=== PATIENT | male | born 1990 | race Caucasian/White ===

== ENCOUNTER 2022-08-30 03:03 | Emergency (ER) | payer SELFPAY ==
[~2022-08-30] VITALS: Ht 182.9 cm; Wt 115.7 kg
--- NOTE | 2022-08-30 04:37 | ED General ---
General Chief Complaint: Psych/Social Disorder Stated Complaint: ANXIETY/POSS PANIC ATTACK Source of Information: Patient (DIFFICULT TO KEEP ON TRACK--TALKS RAPIDLY NON- STOP), Other (BROTHER DOES GIVE SOME INFORMATION) History of Present Illness Date Seen by Provider: Aug 30, 2022 Time Seen by Provider: 04:10 Initial Comments PT ARRIVES VIA POV FROM HOME WITH BROTHER PT STATES "I THOUGHT I WAS HAVING A PANIC ATTACK" STATES TONIGHT, HE BEGAN HAVING RACING THOUGHTS STATES "I FORGOT SOMETHING AND I COULDN'T STOP THINKING ABOUT IT AND MY THOUGHTS STARTED RACING AND I JUST STARTED TO THINK ABOUT ALL THE THINGS THAT MIGHT HAPPEN" STATES "I WAS WINDING MYSELF UP AND I COULDN'T STOP THINKING" "AND I'M HAVING RACING THOUGHTS" --HE REPEATS THIS SEVERAL TIMES STATES THEN HE FELT LIKE HE COULDN'T CATCH HIS BREATH AND HIS THOUGHTS JUST KEPT RACING AND COULDN'T STOP THINKING ABOUT ALL THE BAD THINGS IT MIGHT BE" TALKED TO HIS BROTHER WHO TRIED TO CALM HIM DOWN, AND HE WOULD CALM DOWN A LITTL E AND THEN HE WOULD START WINDING UP AGAIN. HE IS NOT HAVING ANY THOUGHTS OF SELF HARM OR HARMING SOMEONE ELSE, OR HEARING VOICES. STATES HE HAS NOT BEEN ABLE TO SLEEP TONIGHT, AND ONLY GOT 6 HOURS OF SLEEP LAST NIGHT BECAUSE HE WAS UP MOST OF THE NIGHT AT A FRIENDS HOUSE. HE DENIES ANY HISTORY OF SIMILAR HE DENIES ANY HISTORY OF MENTAL HEALTH PROBLEMS HE DOES NOT TAKE ANY DAILY MEDICATIONS STATES HE DOES NOT SMOKE, BUT BINGE DRINKS ON WEEKENDS--ABOUT A PINT A NIGHT ON WEEKENDS--LAST ETOH WAS TUESDAY NIGHT 08/28/22 HE SMOKED A "DELTA 8" THC TONIGHT, AND SHORTLY AFTER THAT IS WHEN THESE SYMPTOMS BEGAN Allergies and Home Medications Allergies Coded Allergies: No Known Drug Allergies (Unverified , 08/30/22) Patient Home Medication List No Active Prescriptions or Reported Meds Physical Exam Vital Signs Vital Signs - First Documented 08/30/22 03:53 Temp 36.3 Pulse 75 Resp 14 B/P (MAP) 149/107 (121) Pulse Ox 98 O2 Delivery Room Air Capillary Refill : Height, Weight, BMI Height: '" Weight: lbs. oz. kg; BMI Method: General Appearance: No Apparent Distress, WD/WN, Anxious, Obese Respiratory: Normal Breath Sounds, No Accessory Muscle Use, No Respiratory Distress Cardiovascular: Regular Rate, Rhythm, No Murmur Gastrointestinal: Non Tender, Soft Extremity: Normal Inspection Neurologic/Psychiatric: Alert, Oriented x3, No Motor/Sensory Deficits, client onboarding analyst II- XII Norm as Tested Skin: Normal Color, Warm/Dry Progress/Results/Core Measures Suspected Sepsis SIRS Temperature: Pulse: Respiratory Rate: Laboratory Tests 08/30/22 04:32: White Blood Count 5.9 Blood Pressure / Mean: Laboratory Tests 08/30/22 04:32: Creatinine 0.84, Platelet Count 256, Total Bilirubin 0.5 Results/Orders Lab Results Laboratory Tests Test 08/30/22 04:32 08/30/22 04:34 Range/Units White Blood Count 5.9 4.3-11.0 10^3/uL Red Blood Count 5.16 4.30-5.52 10^6/uL Hemoglobin 16.2 13.3-17.7 g/dL Hematocrit 46 40-54 % Mean Corpuscular Volume 89 80-99 fL Mean Corpuscular Hemoglobin 31 25-34 pg Mean Corpuscular Hemoglobin Concent 35 32-36 g/dL Red Cell Distribution Width 13.2 10.0-14.5 % Platelet Count 256 130-400 10^3/uL Mean Platelet Volume 11.6 9.0-12.2 fL Immature Granulocyte % (Auto) 0 % Neutrophils (%) (Auto) 58 42-75 % Lymphocytes (%) (Auto) 29 12-44 % Monocytes (%) (Auto) 8 0-12 % Eosinophils (%) (Auto) 3 0-10 % Basophils (%) (Auto) 2 0-10 % Neutrophils # (Auto) 3.4 1.8-7.8 10^3/uL Lymphocytes # (Auto) 1.7 1.0-4.0 10^3/uL Monocytes # (Auto) 0.5 0.0-1.0 10^3/uL Eosinophils # (Auto) 0.2 0.0-0.3 10^3/uL Basophils # (Auto) 0.1 0.0-0.1 10^3/uL Immature Granulocyte # (Auto) 0.0 0.0-0.1 10^3/uL Sodium Level 141 135-145 MMOL/L Potassium Level 3.5 L 3.6-5.0 MMOL/L Chloride Level 104 98-107 MMOL/L Carbon Dioxide Level 23 21-32 MMOL/L Anion Gap 14 5-14 MMOL/L Blood Urea Nitrogen 7 7-18 MG/DL Creatinine 0.84 0.60-1.30 MG/DL Estimat Glomerular Filtration Rate 119 BUN/Creatinine Ratio 8 Glucose Level 107 H 70-105 MG/DL Calcium Level 10.0 8.5-10.1 MG/DL Corrected Calcium 8.5-10.1 MG/DL Total Bilirubin 0.5 0.1-1.0 MG/DL Aspartate Amino Transf (AST/SGOT) 29 5-34 U/L Alanine Aminotransferase (ALT/SGPT) 64 H 0-55 U/L Alkaline Phosphatase 102 40-136 U/L Total Protein 8.2 6.4-8.2 GM/DL Albumin 4.7 H 3.2-4.5 GM/DL TSH [place] Testing 2.32 0.35-4.94 UIU/ML Salicylates Level < 5.0 L 5.0-20.0 MG/DL Acetaminophen Level < 10 L 10-30 UG/ML Serum Alcohol < 10 <10 MG/DL Urine Color YELLOW Urine Clarity CLEAR Urine pH 5.5 5-9 Urine Specific [place] >=1.030 1.016-1.022 Urine Protein NEGATIVE NEGATIVE Urine Glucose (UA) NEGATIVE NEGATIVE Urine Ketones 1+ H NEGATIVE Urine Nitrite NEGATIVE NEGATIVE Urine Bilirubin 1+ H NEGATIVE Urine Urobilinogen 0.2 < = 1.0 MG/DL Urine Leukocyte Esterase NEGATIVE NEGATIVE Urine RBC (Auto) NEGATIVE NEGATIVE Urine RBC NONE /HPF Urine WBC RARE /HPF Urine Squamous Epithelial Cells RARE /HPF Urine Crystals PRESENT H /LPF Urine Calcium Oxalate Crystals RARE H /LPF Urine Bacteria TRACE /HPF Urine Casts PRESENT /LPF Urine Hyaline Casts 0-2 H /LPF Urine Mucus MODERATE H /LPF Urine Culture Indicated NO Urine Opiates Screen NEGATIVE NEGATIVE Urine Oxycodone Screen NEGATIVE NEGATIVE Urine Methadone Screen NEGATIVE NEGATIVE Urine Propoxyphene Screen NEGATIVE NEGATIVE Urine Barbiturates Screen NEGATIVE NEGATIVE Ur Tricyclic Antidepressants Screen NEGATIVE NEGATIVE Urine Phencyclidine Screen NEGATIVE NEGATIVE Urine Amphetamines Screen NEGATIVE NEGATIVE Urine Methamphetamines Screen NEGATIVE NEGATIVE Urine Benzodiazepines Screen NEGATIVE NEGATIVE Urine Cocaine Screen NEGATIVE NEGATIVE Urine Cannabinoids Screen POSITIVE H NEGATIVE My Orders Orders - EMMANUELANDRY Bardales K DO Acetaminophen (08/30/22 04:16) Alcohol (08/30/22 04:16) Cbc With Automated Diff (08/30/22 04:16) Comprehensive Metabolic Panel (08/30/22 04:16) Drug Screen Stat (Urine) (08/30/22 04:16) Thyroid Analyzer (08/30/22 04:16) Ua Culture If Indicated (08/30/22 04:16) Salicylate (08/30/22 04:16) Vital Signs/I&O 08/30/22 03:53 Temp 36.3 Pulse 75 Resp 14 B/P (MAP) 149/107 (121) Pulse Ox 98 O2 Delivery Room Air Capillary Refill : Progress Note : Progress Note NO PRIOR VISITS HERE Departure Impression Primary Impression: Anxiety Additional Impressions: Marijuana use DRUG INDUCED ANXIETY Disposition: 01 HOME, SELF-CARE Condition: Improved Departure-Patient Inst. Decision time for Depature: 05:55 Referrals: NO,LOCAL PHYSICIAN (PCP/Family) Primary Care Physician Patient Instructions: Anxiety, Adult (DC), Drug Misuse and Addiction (DC), Marijuana Use and Addiction (DC) Add. Discharge Instructions: HOME, REST LOTS OF CLEAR LIQUIDS--NO CAFFEINE NO STIMULANTS OF ANY KIND NO DRUGS OF ANY KIND RETURN TO ER IF SYMPTOMS WORSEN All discharge instructions reviewed with patient and/or family. Voiced understanding. Scripts No Active Prescriptions or Reported Meds ANDRY BENITEZ DO Aug 30, 2022 04:37
[2022-08-30 04:42] LABS: BASOPHILS # (AUTO) 0.1 10^3/uL (0.0-0.1); BASOPHILS % (AUTO) 2 % (0-10); EOSINOPHILS # (AUTO) 0.2 10^3/uL (0.0-0.3); EOSINOPHILS % (AUTO) 3 % (0-10); HEMATOCRIT 46 % (40-54); HEMOGLOBIN 16.2 g/dL (13.3-17.7); LYMPHOCYTES # (AUTO) 1.7 10^3/uL (1.0-4.0); LYMPHOCYTES % (AUTO) 29 % (12-44); MEAN CORPUSCULAR HEMOGLOBIN 31 pg (25-34); MEAN CORPUSCULAR HGB CONC 35 g/dL (32-36); MEAN CORPUSCULAR VOLUME 89 fL (80-99); MEAN PLATELET VOLUME 11.6 fL (9.0-12.2); MONOCYTES # (AUTO) 0.5 10^3/uL (0.0-1.0); MONOCYTES % (AUTO) 8 % (0-12); NEUTROPHILS # (AUTO) 3.4 10^3/uL (1.8-7.8); NEUTROPHILS % (AUTO) 58 % (42-75); PLATELET COUNT 256 10^3/uL (130-400); WHITE BLOOD COUNT 5.9 10^3/uL (4.3-11.0)
[2022-08-30 04:50] LABS: ALBUMIN 4.7 GM/DL (3.2-4.5); CHLORIDE 104 MMOL/L (98-107); POTASSIUM 3.5 MMOL/L (3.6-5.0); SODIUM 141 MMOL/L (135-145)
[2022-08-30 04:52] LABS: CLARITY,URINE CLEAR; COLOR,URINE YELLOW; GLUCOSE, URINE (UA) NEGATIVE (NEGATIVE); KETONES,URINE 1+ (NEGATIVE); LEUKOCYTE ESTERASE ,URINE NEGATIVE (NEGATIVE); NITRITE,URINE NEGATIVE (NEGATIVE); PH,URINE 5.5 (5-9); PROTEIN,URINE NEGATIVE (NEGATIVE)
[2022-08-30 04:53] LABS: GLUCOSE 107 MG/DL (70-105); TOTAL PROTEIN 8.2 GM/DL (6.4-8.2)
[2022-08-30 04:54] LABS: CARBON DIOXIDE 23 MMOL/L (21-32)
[2022-08-30 04:56] LABS: ALKALINE PHOSPHATASE 102 U/L (40-136); CREATININE SERUM 0.84 MG/DL (0.60-1.30)
[2022-08-30 04:57] LABS: GFR ESTIMATED 119
[2022-08-30 04:58] LABS: BUN/CREATININE RATIO 8
[2022-08-30 04:59] LABS: ALANINE AMINOTRANSFERASE 64 U/L (0-55)
[2022-08-30 05:00] LABS: SALICYLATE < 5.0 MG/DL (5.0-20.0)
[2022-08-30 05:05] LABS: BACTERIA,URINE TRACE /HPF; CALCIUM OXALATE CRYSTALS,UR RARE /LPF; HYALINE CASTS, URINE 0-2 /LPF; SQUAMOUS EPITHELIAL CELL,UR RARE /HPF; WBC,URINE RARE /HPF
[2022-08-30 05:06] LABS: BILIRUBIN,URINE 1+ (NEGATIVE)
[2022-08-30 05:06] LABS: ACETAMINOPHEN < 10 UG/ML (10-30)
[2022-08-30 05:11] LABS: AMPHETAMINE SCREEN, URINE NEGATIVE (NEGATIVE); BARBITURATE SCREEN URINE NEGATIVE (NEGATIVE); BENZODIAZEPINES SCREEN URINE NEGATIVE (NEGATIVE); CANNABINOID SCREEN, URINE POSITIVE (NEGATIVE); COCAINE SCREEN URINE NEGATIVE (NEGATIVE); METHADONE STAT NEGATIVE (NEGATIVE); OPIATE SCREEN URINE NEGATIVE (NEGATIVE); OXYCODONE STAT NEGATIVE (NEGATIVE); PROPOXYPHENE STAT NEGATIVE (NEGATIVE); TRICYCLIC ANTIDEPRESSANTS SCRE NEGATIVE (NEGATIVE)
[2022-08-30 05:20] LABS: TSH (THYROID ANALYZER) 2.32 UIU/ML (0.35-4.94)
[2022-08-30 05:38] LABS: BILIRUBIN,TOTAL 0.5 MG/DL (0.1-1.0)
[2022-08-30 06:07] VITALS: BP 132/87
== END 2022-08-30 06:08 | disposition home or self-care (01) ==
LOC: EDUNIT# 03:03 → ER 03:07
DX: F12.980 Cannabis use, unspecified with anxiety disorder (principal); E66.9 Obesity, unspecified; Z68.34 Body mass index [BMI] 34.0-34.9, adult; Z28.310 Unvaccinated for COVID-19
CPT/HCPCS: 80053; 80306; 81000; 84443; 85025; 99283; G0480 ×3; 36415; 80320; 80329